=== PATIENT | male | born 1990 | race Caucasian/White ===

== ENCOUNTER 2024-06-20 13:01 | Outpatient (OUT) | payer OTHER, SELFPAY ==
--- NOTE | 2024-06-20 13:00 | CA_ITS ---
Patient Name: JONATHAN MAYBERRY MR#: [id number] : 1990 Exam Date: 06/20/2024 Ordering Doctor: Raj Agrawal ECHOCARDIOGRAM REPORT PROCEDURE: CA ECHO DOPPLER COMPLETE INDICATIONS: Hypertrophic obstructive cardiomyopathy, AICD COMPARISON: None. DESCRIPTION: COMPLETE ECHOCARDIOGRAM Real-time transthoracic echocardiography with 2D, M-mode, spectral and color flow Doppler performed. QUALITY: Technical quality was good. LEFT VENTRICLE: Small chamber size. Severly thickened ventricular septum (4.0 cm). Severe ventricular outflow obstruction. HANNAH is noted. LV EF: Normal left ventricular ejection fraction 65-70% DIASTOLIC: Grade I diastolic dysfunction. ATRIAL SEPTUM: Visually appears intact. LEFT ATRIUM: Mild dilatation. RIGHT ATRIUM: Normal chamber size. RIGHT VENTRICLE: Normal chamber size. Pacer wire present. TRICUSPID VALVE: Normal mobility and thickness. No stenosis with trivial regurgitation. No evidence of pulmonary hypertension.RVSP 22 mmHg MITRAL VALVE: Normal mobility and thickness. HANNAH is noted. No evidence of mitral valve stenosis. There is no mitral annular calcification. Mild mitral regurgitation. AORTIC VALVE: Normal trileaflet appearance. No visible sclerosis. Normal leaflet mobility. No evidence of aortic valve stenosis. No aortic regurgitation. AORTIC ROOT: Normal diameter and appearance. PULMONIC VALVE: Normal thickness and mobility. No stenosis. Mild regurgitation. PERICARDIUM: No evidence of pericardial effusion. IVC: Within normal limits. IVC is normal in size. PLEURA: CONCLUSION: Severely thickened intraventricular septum 4 cm with severe left ventricular outflow obstruction and HANNAH phenomena consistent with hypertrophic cardiomyopathy. Small left ventricle cavity size Normal left ventricle systolic function ejection fraction 65 to 70% Grade 1 diastolic dysfunction Mildly dilated left atrium Mild mitral regurgitation Trace tricuspid regurgitation Normal right ventricle size and systolic function No evidence of pulmonary hypertension Adult Echocardiography Procedure Report Left Ventricle LVEDD (3.7 - 5.6 cm): 3.66 cm LVESD (2.2 - 4.0 cm): 1.88 cm LVIVS thickness (0.6 - 1.2 cm): 3.99 cm LVPW thickness (0.5 - 1.0 cm): 0.73 cm e': 0.05 m/s E - e': 9.63 LVOT Max Gradient: LVOT Area (cm2): Peak Velocity (LVOT): Mean Velocity (LVOT): LVOT Diameter 2.22 cm Left Ventricular Ejection Fraction: Left Atrium LA Volume Index (2D A2C): 37.40 ml/m2 Left Atrium Systolic Dimension: 3.11 cm Mitral Valve MV E to A Ratio: 1.12 MV Max Gradient: MV Mean Gradient: Mitral Valve A-Wave Peak Velocity: 0.47 m/s Mitral Valve E-Wave Peak Velocity: 0.53 m/s Cardiovascular Orifice Area: Right Ventricle RV Internal Diastolic Dimension: Aorta AO Root Diam: 3.25 cm Ascending Ao Diam: Aortic Valve AoV Area (Peak Aubrey): AoV Area (VTI): Deceleration Ballard: Pressure Half-Time: Peak Velocity(Antegrade Flow): 2.30 m/s Peak Gradient(Antegrade Flow): 21.13 mm[Hg] Mean Velocity(Antegrade Flow): 1.54 m/s Mean Gradient(Antegrade Flow): 11.29 mm[Hg] Velocity Time Integral: 41.15 cm Tricuspid Valve Peak Velocity (Regurgitant Flow): 2.12 m/s, 2.17 m/s Peak Velocity: Pulmonic Valve Mean Gradient: 2.45 mm[Hg] Mean Velocity: 0.73 m/s Peak Velocity: 1.04 m/s, 0.98 m/s Peak Gradient: 3.86 mm[Hg], 4.37 mm[Hg] Right Atrium Right Atrium Systolic Pressure: 31.48 ml, 31.48 ml Dictated by: Donaldo Hopper MD on 06/20/2024 at 19:05 Approved by: Donaldo Hopper MD on 06/20/2024 at 19:20
== END 2024-06-20 13:02 | disposition home or self-care (01) ==
LOC: CARD 13:01
PROVIDERS: PCP Pediatrics; Visit Provider Internal Medicine Cardiovascular Disease
DX: I72.1 Aneurysm of artery of upper extremity (principal)
CPT/HCPCS: 93306

== ENCOUNTER 2024-08-15 16:25 | Outpatient (OUT) | payer OTHER, SELFPAY ==
--- OUTSIDE RECORDS SUMMARY | 2024-08-15 16:32 | XMS_ITS | CCD ---
Author Organization [facility] Inform ion Partnership [facility] Care Team Providers Care Drug Regulatory Affairs Specialist Name Role Phone IRENE HERNANDEZ Unavailable Unavailable IRENE HERNANDEZ Unavailable Unavailable SELF, REFERRED Primary Care Unavailable TERENCE PRICE Admitting Unavailable IRENE HERNANDEZ Referring Unavailable Giuliano Clement Attending Unavailable RAJ AGRAWAL Attending Unavailable Problems Problem Classification Problem Date Documented Da te Episodic/Chronic Sharonda-; endo-; and myocarditis; cardiomyopathy (except that caused by tuberculosis or sexually transmitted disease) (2 sources) Obstructive hypertrophic cardiomyopathy; Translations: [Obstructive hypertrophic cardiomyopathy] Onset: 06-10-2024 Chronic Results Test Name Value Interpretation Reference Range Facil ity Orders Onlyon 08-11-2024 Orders Only [id number] Jonathan Santana P 1990 Date Provider Department Center 08/11/2024 DEONTE ROMANO [facility] Family History Problem Relation Age of Onset Other Mother Other Brother Other Mother's Sister Family Status - Relation Status Age at Mother Brother Mother's Sister Normal [facility] Orders Onlyon 06-17-2024 Orders Only [id number] Jonathan Santana P 1990 M Date Provider Department Center 06/17/2024 ALIDA KAYE [facility] Family History Problem Relation Age of Onset Other Mother Other Brother Other Mother's Sister Family Status - Relation Status Age at Mother Brother Mother's Sister Normal [facility] Office Visiton 06-10-2024 Follow-up visit [id number] Jonathan Santana 1990 M Date Provider Department Center 06/10/2024 241-RAJ AGRAWAL [facility] Family History Problem Relation Age of Onset Other Mother Other Brother Other Mother's Sister Family Status - Relation Status Age at Mother Brother Mother's Sister Level of Service:64730 [place] OFFICE/OUTPATIENT NEW MODERATE MDM 45 MINUTES Normal [facility] BASIC METABOLIC PANELon 05-3 Calcium [Mass/Vol] 9.4 mg/dL Normal 8.6-10.3 [facility] Comment on above: Order Comment: No: D o not add to previous draw Performed By: #### 0 0071 #### [facility] [address] [place] [address], [place] Chloride [Moles/Vol] 102 mmol/L Normal 98-107 [facility] Comment on above: Order Comment: No: D o not add to previous draw Performed By: #### 0 0071 #### [facility] [address] [place] [address], [place] CO2 [Moles/Vol] 27 mmol/L Normal 21-31 [facility] Comment on above: Order Comment: No: D o not add to previous draw Performed By: #### 0 0071 #### [facility] [address] [place] [address], [place] Creatinine [Mass/Vol] 1.05 mg/dL Normal 0.70-1.30 [facility] Comment on above: Order Comment: No: D o not add to previous draw Performed By: #### 0 0071 #### [facility] [address] [place] [address], [place] GFR/1.73 sq M predicted among blacks MDRD (S/P/Bld) [Vol rate/Area] mL/min/{1.73_m2} Normal >60 [facility] Comment on above: Order Comment: No: D o not add to previous draw Performed By: #### 0 0071 #### [facility] [address] [place] [address], [place] GFR/1.73 sq M predicted among non-blacks MDRD (S/P/Bld) [Vol rate/Area] mL/min/{1.73_m2} Normal >60 [facility] Comment on above: Order Comment: No: D o not add to previous draw Performed By: #### 0 0071 #### [facility] [address] [place] [address], [place] Glucose [Mass/Vol] 87 mg/dL Normal 70-100 [facility] Comment on above: Order Comment: No: D o not add to previous draw Performed By: #### 0 0071 #### [facility] [address] [place] [address], [place] Potassium [Moles/Vol] 3.7 mmol/L Normal 3.5-5.1 [facility] Comment on above: Order Comment: No: D o not add to previous draw Performed By: #### 0 0071 #### [facility] [address] [place] [address], [place] Sodium [Moles/Vol] 139 mmol/L Normal 136-145 [facility] Comment on above: Order Comment: No: D o not add to previous draw Performed By: #### 0 0071 #### [facility] [address] [place] [address], [place] Urea nitrogen [Mass/Vol] 13 mg/dL Normal 7-25 [facility] Comment on above: Order Comment: No: D o not add to previous draw Performed By: #### 0 0071 #### [facility] [address] [place] [address], [place] CBC COMPLETE BLOOD COUNTon 0 - Erythrocyte distribution width (RBC) [Ratio] 12.7 % Normal 11.5-15.0 [facility] Comment on above: Order Comment: No: D o not add to previous draw Performed By: #### 5 0608 #### [facility] [address] [place] [address], [place] Hematocrit (Bld) [Volume fraction] 46.2 % Normal 39.0-50.0 [facility] Comment on above: Order Comment: No: D o not add to previous draw Performed By: #### 5 0608 #### [facility] [address] [place] [address], [facility] Hemoglobin (Bld) [Mass/Vol] 15.5 g/dL Normal 13.0-17.0 [facility] Comment on above: Order Comment: No: D o not add to previous draw Performed By: #### 5 0608 #### [facility] [address] [place] [address], [facility] [place] MCH (RBC) [Entitic mass] 30.1 pg Normal 27.0-33.0 [facility] Comment on above: Order Comment: No: D o not add to previous draw Performed By: #### 5 0608 #### [facility] [address] [facility] [place] [address], [facility] [place] MCHC (RBC) [Mass/Vol] 33.5 g/dL Normal 32.0-35.0 [facility] Comment on above: Order Comment: No: D o not add to previous draw Performed By: #### 5 0608 #### [facility] [address] [facility] [place] [address], [facility] [place] MCV (RBC) [Entitic vol] 89.7 fL Normal 82.0-98.0 [facility] Comment on above: Order Comment: No: D o not add to previous draw Performed By: #### 5 0608 #### [facility] [address] [facility] [place] [address], [facility] [place] Nucleated RBC/100 WBC (Bld) [Ratio] 0 % Normal 0-0 [facility] Comment on above: Order Comment: No: D o not add to previous draw Performed By: #### 5 0608 #### [facility] [address] [place] [address], [facility] [place] PLAT CNT 234 10*3/uL Normal 150-400 The [facility] Comment on above: Order Comment: No: D o not add to previous draw Performed By: #### 5 0608 #### [facility] [address] [place] [address], [place] RBC (Bld) [#/Vol] 5.15 10*6/uL Normal 4.20-5.70 The [facility] Comment on above: Order Comment: No: D o not add to previous draw Performed By: #### 5 0608 #### [facility] [address] [place] [address], [place] WBC (Bld) [#/Vol] 7.25 10*3/uL Normal 4.00-10.60 [facility] Comment on above: Order Comment: No: D o not add to previous draw Performed By: #### 5 0608 #### [facility] [address] [place] [address], [place] BASIC METABOLIC PANELon 05- Calcium [Mass/Vol] 9.3 mg/dL Normal 8.6-10.3 [facility] Comment on above: Order Comment: No: D o not add to previous draw Performed By: #### 0 0071, 72050, 99480 #### [facility] [address] [place] [address], [place] Chloride [Moles/Vol] 105 mmol/L Normal 98-107 [facility] Comment on above: Order Comment: No: D o not add to previous draw Performed By: #### 0 0071, 21726, 44870 #### [facility] [address] [place] [address], [place] CO2 [Moles/Vol] 25 mmol/L Normal 21-31 [facility] Comment on above: Order Comment: No: D o not add to previous draw Performed By: #### 0 0071, 71971, 33212 #### [facility] [address] [place] [address], [place] Creatinine [Mass/Vol] 0.91 mg/dL Normal 0.70-1.30 [facility] Comment on above: Order Comment: No: D o not add to previous draw Performed By: #### 0 0071, 00726, 28561 #### [facility] [address] [place] [address], [place] GFR/1.73 sq M predicted among blacks MDRD (S/P/Bld) [Vol rate/Area] mL/min/{1.73_m2} Normal >60 [facility] Comment on above: Order Comment: No: D o not add to previous draw Performed By: #### 0 0071, 21215, 73034 #### [facility] [address] [place] [address], [place] GFR/1.73 sq M predicted among non-blacks MDRD (S/P/Bld) [Vol rate/Area] mL/min/{1.73_m2} Normal >60 [facility] Comment on above: Order Comment: No: D o not add to previous draw Performed By: #### 0 0071, 74363, 01163 #### [facility] [address] [place] [address], [place] Glucose [Mass/Vol] 162 mg/dL High 70-100 [facility] Comment on above: Order Comment: No: D o not add to previous draw Performed By: #### 0 0071, 02696, 10794 #### [facility] [address] [place] [address], [place] Potassium [Moles/Vol] 3.6 mmol/L Normal 3.5-5.1 [facility] Comment on above: Order Comment: No: D o not add to previous draw Performed By: #### 0 0071, 67680, 65612 #### [facility] [address] [place] [address], [place] Sodium [Moles/Vol] 138 mmol/L Normal 136-145 The [facility] Comment on above: Order Comment: No: D o not add to previous draw Performed By: #### 0 0071, 74387, 33444 #### [facility] [address] [place] [address], [facility] Urea nitrogen [Mass/Vol] 11 mg/dL Normal 7-25 [facility] Comment on above: Order Comment: No: D o not add to previous draw Performed By: #### 0 0071, 05454, 84258 #### [facility] [address] BNP (B-TYPE NATRIURETIC PEPT NEEL)on 11-26-2018 Natriuretic peptide B (Bld) [Mass/Vol] 135 pg/mL High 0-100 The [facility] Comment on above: Order Comment: No: D o not add to previous draw Result Comment: Give n the appropriate clinical setting a BNP result of >100 pg/mL indicates congestive heart failure. Performed By: #### 8 5123 #### [facility] [address] CBC W/DIFFon 11-26-2018 ABS BASOPHILS 0.0 10*3/uL Normal 0.0-0.2 The [facility] Comment on above: Order Comment: No: D o not add to previous draw Performed By: #### 5 0103 #### [facility] [address] ABS IMM GRANS 0.0 10*3/uL Normal 0.0-0.2 [facility] Comment on above: Order Comment: No: D o not add to previous draw Performed By: #### 5 0103 #### [facility] [address] [place] [address], [facility] [place] ABS NEUTROPHILS 4.0 10*3/uL Normal 1.6-7.[address] [facility] Comment on above: Order Comment: No: D o not add to previous draw Performed By: #### 5 0103 #### [facility] [address] [place] [address], [facility] Basophils/100 WBC (Bld) 0.5 % Normal 0.0-1.0 [facility] Comment on above: Order Comment: No: D o not add to previous draw Performed By: #### 5 0103 #### [facility] [address] [place] [address], [facility] [place] Eosinophils (Bld) [#/Vol] 0.1 10*3/uL Normal 0.0-0.5 [facility] Comment on above: Order Comment: No: D o not add to previous draw Performed By: #### 5 0103 #### [facility] [address] [place] [address], [facility] [place] Eosinophils/100 WBC (Bld) 1.7 % Normal 0.0-6.0 [facility] Comment on above: Order Comment: No: D o not add to previous draw Performed By: #### 5 0103 #### [facility] [address] [place] [address], [facility] [place] Erythrocyte distribution width (RBC) [Ratio] 12.7 % Normal 11.5-15.0 [facility] Comment on above: Order Comment: No: D o not add to previous draw Performed By: #### 5 3 #### [facility] [address] [place] [address], [facility] [place] Hematocrit (Bld) [Volume fraction] 44.5 % Normal 39.0-50.0 [facility] Comment on above: Order Comment: No: D o not add to previous draw Performed By: #### 5 0103 #### [facility] [address] [place] [address], [facility] [place] Hemoglobin (Bld) [Mass/Vol] 15.6 g/dL Normal 13.0-17.0 [facility] Comment on above: Order Comment: No: D o not add to previous draw Performed By: #### 5 0103 #### [facility] [address] [place] [address], [facility] [place] IMMATURE GRANS 0.5 % Normal 0.0-1.0 The [facility] Comment on above: Order Comment: No: D o not add to previous draw Performed By: #### 5 0103 #### [facility] [address] [place] [address], [facility] [place] Lymphocytes (Bld) [#/Vol] 1.6 10*3/uL Normal 1.2-4.0 [facility] Comment on above: Order Comment: No: D o not add to previous draw Performed By: #### 5 0103 #### [facility] [address] [facility] [place] [address], [facility] Lymphocytes/100 WBC (Bld) 25.6 % Normal 20.0-45.0 [facility] Comment on above: Order Comment: No: D o not add to previous draw Performed By: #### 5 0103 #### [facility] [address] [facility] [place] [address], [facility] [place] MCH (RBC) [Entitic mass] 30.2 pg Normal 27.0-33.0 [facility] Comment on above: Order Comment: No: D o not add to previous draw Performed By: #### 5 0103 #### [facility] [address] [facility] [place] [address], [facility] [place] MCHC (RBC) [Mass/Vol] 35.1 g/dL High 32.0-35.0 [facility] Comment on above: Order Comment: No: D o not add to previous draw Performed By: #### 5 0103 #### [facility] [address] [facility] [place] [address], [facility] [place] MCV (RBC) [Entitic vol] 86.1 fL Normal 82.0-98.0 [facility] Comment on above: Order Comment: No: D o not add to previous draw Performed By: #### 5 0103 #### [facility] [address] [place] [address], [facility] Monocytes (Bld) [#/Vol] 0.5 10*3/uL Normal 0.1-1.0 [facility] Comment on above: Order Comment: No: D o not add to previous draw Performed By: #### 5 0103 #### [facility] [address] [place] [address], [facility] MONOS 8.1 % Normal 5.0-12.0 [facility] Comment on above: Order Comment: No: D o not add to previous draw Performed By: #### 5 0103 #### [facility] [address] [place] [id number], [facility] Neutrophils/100 WBC (Bld) 63.6 % Normal 40.0-72.0 [facility] Comment on above: Order Comment: No: D o not add to previous draw Performed By: #### 5 0103 #### [facility] [address] [place] [id number], [facility] Nucleated RBC/100 WBC (Bld) [Ratio] 0 % Normal 0-0 [facility] Comment on above: Order Comment: No: D o not add to previous draw Performed By: #### 5 0103 #### [facility] [address] [place] [address], [place] PLAT CNT 219 10*3/uL Normal 150-400 The [facility] Comment on above: Order Comment: No: D o not add to previous draw Performed By: #### 5 0103 #### [facility] [address] [place] [address], [place] RBC (Bld) [#/Vol] 5.17 10*6/uL Normal 4.20-5.70 The [facility] Comment on above: Order Comment: No: D o not add to previous draw Performed By: #### 5 0103 #### [facility] [address] WBC (Bld) [#/Vol] 6.29 10*3/uL Normal 4.00-10.60 [facility] Comment on above: Order Comment: No: D o not add to previous draw Performed By: #### 5 0103 #### [facility] [address] MAGNESIUM BLOODon 11-26-2018 Magnesium [Mass/Vol] 2.0 mg/dL Normal 1.9-2.7 [facility] Comment on above: Order Comment: No: D o not add to previous draw Performed By: #### 0 0071, 77440, 48426 #### [facility] [address] [facility]. [address] TROPONIN-Ion 11-26-2018 Troponin I.cardiac [Mass/Vol] 0.01 ng/mL Normal 0.00-0.04 [facility] Comment on above: Result Comment: REFE RENCE RANGES: 0.00 - 0.04 ng/ml NORMAL 0.05 - 0.50 ng/ml INDETERMINATE > 0.50 ng/ml CONSISTENT WITH AN M.I. Performed By: #### 0 0071, 11126, 57488 #### [facility] [address] [facility]. [address] Encounters Encounter Date Encounter Type Care Provider Facility Start: 06-10-2024 End: 06-10-2024 ambulatory RAJ AGRAWAL [facility] Start: 11-26-2018 End: 11-28-2018 Evaluation and management of inpatient REFERRED SELF Facility:[facility] Start: 03-27-2017 Ambulatory IRENE Stuart y:H1 Payers Date Payer Category Payer Medicaid [id number] 1990 Unknown [id number] 1961 Self-pay [id number] Unknown [id number] Progress note 06-10-2024 Note Date & Type Note Facility 06-10-2024 Note [facility] Consult Note [facility] Reason for visit: HOCM s/p ICD HPI: Jonathan Santana is a 34 y.o. year old with past medical history of HOCM s/p Medtronic ICD with device approaching ESPINOZA. Device check had revealed presence of ICD shock yes ago. The device is programmed at short AV interval which forced V pacing. When programmed to facilitate white mountain conduction, patient became uneasy due to vagal stimulation. PMH: Past Medical History: Diagnosis Date Abnormal ECG HOCM (hypertrophic obstructive cardiomyopathy) (CMS/HCC) HOCM (hypertrophic obstructive cardiomyopathy) (CMS/HCC) PSH: Past Surgical History: Procedure Laterality Date INSERT / REPLACE / REMOVE PACEMAKER SH: Social Determinants of Health Tobacco Use: Low Risk (06/18/2024) Received from [facility] Patient History Smoking Tobacco Use: Never Smokeless Tobacco Use: Never Passive Exposure: Not on file Alcohol Use: Not on file Financial Resource Strain: Not on file Food Insecurity: Not on file Transportation Needs: Not on file Physical Activity: Not on file Stress: Not on file Social Connections: Not on file Intimate Partner Violence: Not on file Depression: Not on file Housing Stability: Not on file Utilities: Not on file Health Literacy: Not on file Allergies: No Known Allergies Weight: 60.8kg Visit Vitals BP 96/60 (BP Location: Left arm, Patient Position: Sitting) Pulse 95 Ht 1.6 m (5' 3 ) Wt 60.8 kg (134 lb) SpO2 96% BMI 23.74 kg/m??? Smoking Status Never BSA 1.64 m??? Meds: Current Outpatient Medications on File Prior to Visit Medication Sig Dispense Refill metoprolol succinate XL (Toprol-XL) 25 mg 24 hr tablet Take 1 tablet by mouth in the morning. disopyramide ER (Norpace CR) 100 mg 12 hr capsule Take 200 mg by mouth two times daily. No current facility-administered medications on file prior to visit. ROS: Cardio Basic Cardiovascular Symptoms: no lightheadedness, no leg edema, no syncope, no orthopnea, no PND, no claudication, Constitutional Constitutional: no fever, no night sweats, no significant weight gain, no significant weight loss, no exercise intolerance Eyes Eyes: no dry eyes, no irritation, no vision change ENMT Ears: no difficulty hearing, no ear pain Nose: no frequent nosebleeds, Mouth/Throat: no sore throat, no bleeding gums, no snoring, no dry mouth, no mouth ulcers, no oral abnormalities, no teeth problems Respiratory Respiratory: no cough, no wheezing, no coughing up blood, no sleep apnea Musculoskeletal Musculoskeletal: no muscle aches, no muscle weakness, joint pain+, no back pain, no swelling in the extremities Integumentary Skin no rash, no ulcer, no varicosities, no discoloration, no pruritus Neurologic Neurologic: no loss of consciousness, no weakness, no numbness, no seizures, no dizziness, no headaches Psychiatric Psych: no depression, feeling safe in relationship, no alcohol abuse, Hematologic/Lymphatic Hematologic/Lymphatic no swollen glands, no bruising Physical Exam: Constitutional General Appearance: well-nourished, well-developed, appears stated age Level of Distress: comfortable Eyes LB Neck Neck: supple, trachea midline Carotid Arteries: bilateral normal upstroke, no bruits Jugular Veins: normal jugular venous pressure Thyroid: not enlarged Lungs Respiratory Effort: unlabored Chest Exam: normal curvature, no thoracic deformity Auscultation: clear, no wheezing, no rales, no rhonchi Cardiovascular Chest wall: Rate And Rhythm: regular Heart Sounds: normal S1, normal s2, no gallop Systolic Murmur: not heard Diastolic Murmur: not heard Extremities: no cyanosis, no edema, no peripheral signs of emboli Peripheral Pulses Radial Pulse: normal Abdomen Inspection and Palpation: soft, non distended, no bruit, non tender Neurologic Gait: normal gait Labs: @LABRESULTS@ Lab Results Component Value Date TSH 1.80 11/03/2018 BNP 135 (H) 11/26/2018 EKG: No results found for this or any previous visit (from the past 4464 hour(s)). Echo: 01/23/19 Stress test: 11/11/28 Coronary angiogram: @CATH@ Diagnostic Imaging: No images are attached to the encounter. Assessment and Plan: - s/p ICD: with device at ESP[place]. Will plan for gen change - HOCM: s/p ICD Will plan to see if allowing white mountain conduction increases outflow gradient. Raj Agrawal MD Cardiac Electrophysiology [facility] Summary Purpose Family History No Family History Records FoundNo Family History Records FoundNo Family History Records Found Advance Directives No Advanced Directives Records FoundNo Advanced Directives Records FoundNo Advanced Directives Records Found Hospital Course Note MR#: [id number] I [facility] Pt. Name: Jonathan Santana Admitted: 11/26/2018 Discharged: 11/28/2018 Date of : 1990 Physician: Giuliano Clement MD DISCHARGE SUMMARY PRIMARY CARE PHYSICIAN: Dr. Hernandez. DISCHARGE DIAGNOSIS: 1. Hypertrophic obstructive cardiomyopathy status post AICD placement. 2. Fatigue secondary to sotalol, resolved. 3. History of polymorphic ventricular tachycardia status post AICD firing in early October 2018. CONSULTS: Cardiology. PROCEDURES/IMAGING: EKG. HOSPITAL COURSE: This is 28-year-old male with past medical history significant for hypertrophic cardiomyopathy status post AICD placement in 2016. He was recently admitted for polymorphic ventricular tachycardia secondary to rapid firing of AICD. His AICD was reset and he was started on sotalol. He was admitted to [facility] secondary to fatigue after starting sotalol. This time, his sotalol was discontinued and he was started on Norpace 100 mg every 6 hours. His EKG and troponins w (more content not included)... Additional Source Comments (unrecognized sect ion and content) No Status Records FoundNo Status Records FoundNo Status Records Found INFORMATION SOURCE (unrecogn ized section and content) DATE CREATED AUTHOR 12/26/2017 [facility] DATE CREATED AUTHOR AUTHOR'S ORGANIZ ATION 11/21/2019 [facility] DATE CREATED AUTHOR AUTHOR'S ORGANIZ ATION 08/13/2024 [facility] FOR RECORDS PERTAINING TO PATIENTS WHO ARE OR HAVE BEEN ENROLLED IN A CHEMICAL DEPENDENCY/SUBSTANCEABUSE PROGRAM, SOME INFORMATION MAY BE OMITTED. This clinical summary was aggregated from multiple sources. Caution should be exercised in using it in the provision of clinical care. This summary normalizes information from multiple sources, and as a consequence, information in this document may materially change the coding, format and clinical context of patient data. In addition, data may be omitted in some cases. CLINICAL DECISIONS SHOULD BE BASED ON THE PRIMARY CLINICAL RECORDS. [facility]. provides no warranty or guarantee of the accuracy or completeness of information in this document.
[2024-08-15 16:44] LABS: Basophils Absolute Auto 0.1 10^3/uL (0.0-0.1); Basophils Percent Auto 0.6 % (0.2-2.0); Eosinophils Absolute Auto 0.2 10^3/uL (0.0-0.7); Eosinophils Percent Auto 1.8 % (0.9-7.0); Hematocrit 47.4 % (42.0-54.0); Hemoglobin 16.3 g/dL (14.0-18.0); Immature Granulocytes Abs Auto 0.02 10^3/uL (0.00-0.03); Immature Granulocytes Pct Auto 0.2 % (0.0-0.5); Lymphocytes Absolute Auto 2.1 10^3/uL (1.2-3.8); Lymphocytes Percent Auto 24.1 % (20.5-60.0); Mean Corpuscular HGB Conc 34.4 g/dL (29.9-35.2); Mean Corpuscular Hemoglobin 31.3 pg (25.9-34.0); Mean Platelet Volume 8.7 fL (9.5-13.5); Monocytes Absolute Auto 0.8 10^3/uL (0.3-0.8); Monocytes Percent Auto 8.4 % (1.7-12.0); Neutrophils Absolute Auto 5.8 10^3/uL (1.4-6.5); Neutrophils Percent Auto 64.9 % (43.0-75.0); Platelet Count 208 10^3/uL (150-450); Red Blood Count 5.21 10^6/uL (4.70-6.10); Red Cell Distribution Width 13.1 % (11.0-15.0); White Blood Count 8.9 10^3/uL (4.0-11.0)
[2024-08-15 16:47] LABS: Anion Gap 8.1; BUN Creatinine Ratio 10.1; Calcium 9.5 mg/dL (8.5-10.1); Carbon Dioxide 34.9 mmol/L (21.0-32.0); Chloride 103 mmol/L (98-107); Estimated GFR (African America >60 (>=60 mL/min/1.73m^2); Estimated GFR (Non-African Ame 58 (>=60 mL/min/1.73m^2); Glucose 87 mg/dL (74-106); Sodium 142 mmol/L (136-145)
== END 2024-08-15 16:26 | disposition home or self-care (01) ==
PROVIDERS: Visit Provider Internal Medicine Cardiovascular Disease
DX: I42.2 Other hypertrophic cardiomyopathy (principal)
CPT/HCPCS: 36415; 80048; 85025